=== PATIENT | female | born 1960 | race Caucasian/White ===

== ENCOUNTER 2019-09-11 18:04 | Emergency (ER) | payer BC ==
[2019-09-11] MEDS ORDERED: HYDROcod/ACETAM 5/325 MG TABLET PO STA (18:12)
--- NOTE | 2019-09-11 18:13 | ED Physician Documentation ---
PD HPI LOWER EXT INJURY - Stated complaint Stated Complaint: FALL/LT FOOT INJURY - Chief complaint Chief Complaint: Ext Problem - History obtained from History obtained from: Patient - History of Present Illness PD HPI LOW EXT INJURY LOCATION: Left (She tripped over her dog's leash and fell injuring her left foot. An isolated injury, no other aches or pains. She complains of pain mostly on the medial side of the top of the left foot.) Review of Systems Constitutional: reports: Reviewed and negative Cardiac: reports: Reviewed and negative Respiratory: reports: Reviewed and negative PD PAST MEDICAL HISTORY - Present Medications Home Medications: Ambulatory Orders Medication Instructions Recorded Confirmed Cholecalciferol (Vitamin D3) 1,000 unit PO 09/11/19 [Vitamin D3] Hydrocodone/Acetaminophen 1 - 2 each PO Q6H PRN #20 tablet 09/11/19 [Hydrocodon-Acetaminophen 5-325] Knee Scooter 1 unit TD ONCE #1 09/11/19 Lactobacillus Acidophilus 1 each PO 09/11/19 [Probiotic Acidophilus] - Allergies Allergies/Adverse Reactions: Allergies Allergy/AdvReac Type Severity Reaction Status Date / Time gabapentin [From Neurontin] Allergy Unknown Verified 09/11/19 18:13 Penicillins Allergy Unknown Verified 09/11/19 18:13 PD ED PE NORMAL - Vitals Vital signs reviewed: Yes - General General: Alert and oriented X 3, No acute distress - Derm Derm: Normal color, Warm and dry - Extremities Extremities: Other (Tender over the proximal first and second metatarsals of the left foot with some swelling in that area dorsally. No calcaneus tenderness, no Achilles tenderness, no ankle tenderness.) - Neuro Neuro: Alert and oriented X 3, Normal speech Results - Vitals Vitals: Vital Signs - 24 hr 09/11/19 18:11 Temperature 36.7 C Heart Rate 96 Respiratory 16 Rate Blood Pressure 139/95 H O2 Saturation 99 Oxygen O2 Source Room air - Rads (name of study) 3v L foot Radiology: EMP read contemporaneously (Proximal metadiaphysis fourth metatarsal fracture and possible fracture of the medial second metatarsal.) Procedures - Splint (location) RLE Splint applied by: Tech Type of splint: Fiberglass, Short leg, Posterior Other: Patient tolerated well, No complications, Good alignment, Crutches provided PD MEDICAL DECISION MAKING - ED course ED course: 58-year-old woman with a foot fracture, maybe 2, no obvious evidence of a Lisfranc type injury but it is possible. As such she is being referred to a foot and ankle specialist in [place] for definitive evaluation and treatment. She was splinted and given crutches and a knee scooter and hydrocodone. Departure - Departure Disposition: 01 Home, Self Care Clinical Impression: Foot fracture, left Qualifiers: Encounter type: initial encounter Fracture type: closed Qualified Code(s): S92.902A - Unspecified fracture of left foot, initial encounter for closed fracture Condition: Good Record reviewed to determine appropriate education?: Yes Instructions: ED Fx Foot Follow-Up: Elio Brasher MD [Physician No Access] - Prescriptions: Hydrocodone/Acetaminophen [Hydrocodon-Acetaminophen 5-325] 1 - 2 each PO Q6H PRN #20 tablet PRN Reason: pain Knee Scooter 1 unit TD ONCE #1 Comments: As discussed, you need to follow-up with a foot and ankle specialist I think for this type of fracture, it is reasonable to follow-up with the foot and ankle specialist whom I gave you the printout of in [place], call Friday for an appoi ntment. You should be seen within a week to 10 days. Keep it elevated. Do not walk or bear weight on it. Do not remove the splint or get it wet. Do not drink or drive while taking narcotic pain medication. Note that many narcotic pain relievers also contain Tylenol/acetaminophen. Please ensure that your total dose of acetaminophen from all sources does not exceed 3 g (3000 mg) per day. You may get constipated while on this medication. Take a stool softener such as Colace twice a day while you are on it. Also add an fgoa-[id number] laxative such as senna or MiraLAX on any day that you do not have a bowel movement. If you received a narcotic pain medication or sedative while in the emergency department, do not drive for the next 24 hours.
--- NOTE | 2019-09-11 18:45 | XRAY Report ---
Reason: foot inj Procedure Date: 09/11/2019 Accession Number: [id number] / [id number] Procedure: XR - Foot 3 View LT CPT Code: Final Report FULL RESULT: EXAM: LEFT FOOT RADIOGRAPHY EXAM DATE: 09/11/2019 06:35 PM. CLINICAL HISTORY: Foot injury. Tripped and fell. Pain in left foot. COMPARISON: None. TECHNIQUE: 3 views. FINDINGS: Minimal first MTP osteoarthritis. No subluxation. Acute fracture at the proximal metadiaphysis at the fourth metatarsal with minimal cortical step-off. Bone fragment measuring 7 mm is seen at the medial second metatarsal at the epiphysis, could represent an acute or chronic nonunion fracture. A CT of the left foot could further evaluate these findings. No subluxation is seen. Plantar calcaneal bone spur. IMPRESSION: Acute fracture at the proximal metadiaphysis at the fourth metatarsal with minimal cortical step-off. Bone fragment measuring 7 mm is seen at the medial second metatarsal at the epiphysis, could represent an acute or chronic nonunion fracture. A CT of the left foot could further evaluate these findings. No subluxation is seen. RADIA
[2019-09-11] MEDS ORDERED: HYDROcod/ACET 5/325 Prepack 4 PO STA (19:07)
[2019-09-11 19:12] VITALS: BP 133/69
== END 2019-09-11 19:22 | disposition home or self-care (01) ==
LOC: ED 18:04
DX: S92.342A Displaced fracture of fourth metatarsal bone, left foot, initial encounter for closed fracture (principal); W01.0XXA Fall on same level from slipping, tripping and stumbling without subsequent striking against object, initial encounter
CPT/HCPCS: 73630; 99283; A9270

== ENCOUNTER 2020-06-14 15:23 | Outpatient (CLI) | payer OTHER ==
--- NOTE | 2020-06-15 15:26 | Mammography Report ---
BILATERAL DIGITAL SCREENING MAMMOGRAM 3D/2D: 06/14/2020 CLINICAL: Routine screening. Comparison is made to exams dated: 07/14/2018 mammogram, 06/27/2017 mammogram, 04/14/2015 mammogram, 07/16/2012 mammogram, and 04/14/2015 ultrasound - [facility]. There are scattered fibrogl andular elements in both breasts. There is a new oval equal density focal asymmetry in the left breast at 12 o'clock anterior depth. No other significant masses, calcifications, or other findings are seen in either breast. IMPRESSION: INCOMPLETE: NEEDS ADDITIONAL IMAGING EVALUATION The new oval equal density focal asymmetry in the left breast most likely is a cyst or a lymph node a nd is indeterminate. Additional views with possible ultrasound are recommended. This exam was interpreted at Station ID: [id number]. NOTE: For mammograms, a report in lay terms will be sent to the patient. Approximately 15% of breast malignancies will not be visualized mammographically. In the management of a palpable breast mass, a negative mammogram must not discourage biopsy of a clinically suspicious lesion. Electronically Signed By: Marycarmen [email or web address]/kae:06/14/2020 18:15:41 ACR BI-RADS Category 0: Incomplete 3340F PARENCHYMAL PATTERN: (A) - The breast(s) demonstrate(s) scattered fibroglandular densities. BI-RADS CATEGORY: (0) - 0 Mammo and [place] [id number] Immediate follow-up LATERALITY: (B)
== END 2020-06-14 15:24 | disposition home or self-care (01) ==
LOC: DI 15:23
DX: Z12.31 Encounter for screening mammogram for malignant neoplasm of breast (principal); R92.8 Other abnormal and inconclusive findings on diagnostic imaging of breast
CPT/HCPCS: 77063; 77067

== ENCOUNTER 2020-07-12 08:26 | Outpatient (CLI) | payer OTHER ==
--- NOTE | 2020-07-14 13:17 | Ultrasound Report ---
LIMITED ULTRASOUND OF LEFT BREAST: 07/12/2020 CLINICAL: Patient returns for additional imaging over a suspected mass in the left breast. Comparison is made to exams dated: 07/12/2020 mammogram, 06/14/2020 mammogram - [facility], 07/14/2018 mammogram, 06/27/2017 mammogram, 04/14/2015 mammogram, and 04/14/2015 ultrasound - [facility]. Ultrasound of the left breast 12 o'clock region was performed. There is a benign lymph node in the left breast at 12 o'clock anterior depth. IMPRESSION: BENIGN There is no sonographic evidence of malignancy. The lymph node in the left breast is benign. Return to annual mammogram screening schedule is recommended. This exam was interpreted at Station ID: [id number]. Electronically Signed By: Cholo Arevalo M.D. jr/:07/12/2020 09:45:03 Ultrasound BI-RADS: 2 Benign BI-RADS CATEGORY: (2) - 2 Mammogram [id number] return to screening LATERALITY: (B)
--- NOTE | 2020-07-14 13:17 | Mammography Report ---
UNILATERAL LEFT DIGITAL DIAGNOSTIC MAMMOGRAM 3D/2D: 07/12/2020 CLINICAL: Patient returns today to evaluate a focal asymmetry in the left breast. Comparison is made to exams dated: 06/14/2020 mammogram - [facility], 07/14/2018 m ammogram, 06/27/2017 mammogram, 04/14/2015 mammogram, 07/16/2012 mammogram, and 04/14/2015 ultrasound - [facility]. There are scattered fibroglandular elements in left breast. There is ano change in the oval equal density focal asymmetry in the left breast at 12 o'clock anteri or depth. This appears to represent a lymph node as there is a fatty hilum and adjacent small vessel . No other significant masses or calcifications are seen in the breast. IMPRESSION: INCOMPLETE: NEEDS ADDITIONAL IMAGING EVALUATION The new oval equal density focal asymmetry in the left breast most likely a lymph node. Ultrasound r ecommended to confirm, scheduled to immediately follow this exam. This exam was interpreted at Station ID: [id number]. NOTE: For mammograms, a report in lay terms will be sent to the patient. Approximately 15% of breast malignancies will not be visualized mammographically. In the management of a palpable breast mass, a negative mammogram must not discourage biopsy of a clinically suspicious lesion. Electronically Signed By: Cholo Arevalo M.D. jr/:07/12/2020 09:44:22 ACR BI-RADS Category 0: Incomplete 3340F PARENCHYMAL PATTERN: (A) - The breast(s) demonstrate(s) scattered fibroglandular densities. BI-RADS CATEGORY: (0) - 0 Ultrasound [id number] Immediate follow-up LATERALITY: (B)
== END 2020-07-12 08:27 | disposition home or self-care (01) ==
LOC: DI 08:26
PROVIDERS: ATTEND Internal Medicine
DX: R92.2 Inconclusive mammogram (principal)
CPT/HCPCS: 76642

== ENCOUNTER 2022-12-30 13:01 | Outpatient (CLI) | payer OTHER ==
--- NOTE | 2022-12-31 09:16 | Mammography Report ---
BILATERAL DIGITAL SCREENING MAMMOGRAM 3D/2D: 12/30/2022 Comparison is made to exams dated: 07/12/2020 mammogram, 06/14/2020 mammogram - [facility], 07/14/2018 mammogram, 06/27/2017 mammogram, 04/14/2015 mammogram, and 07/16/2012 mammogram - [facility]. There are scattered areas of fibroglandular density in both breasts (category b / 25%-50% glandular t issue). There is a stable benign focal asymmetry in the left breast. No significant masses, calcifications, or other findings are seen in either breast. There has been no significant interval change. IMPRESSION: BENIGN There is no mammographic evidence of malignancy. A 1 year screening mammogram is recommended. Based on the Tyrer Cuzick model (a risk assessment model) the patients lifetime risk is 6.5% and her 10 year risk is 3.0%. According to the ACR, ACS, and NCCN guidelines, an annual breast MRI exam ramiro g with mammogram is recommended if the patients lifetime risk is 20% or greater. This exam was interpreted at Station ID: [id number]. NOTE: For mammograms, a report in lay terms will be sent to the patient. Approximately 15% of breast malignancies will not be visualized mammographically. In the management of a palpable breast mass, a negative mammogram must not discourage biopsy of a clinically suspicious lesion. Electronically Signed By: Tenzin rodrigues/kae:12/30/2022 16:52:12 letter sent: No_Letter ACR BI-RADS Category 2: Benign Finding(s) 3342F PARENCHYMAL PATTERN: (A) - The breast(s) demonstrate(s) scattered fibroglandular densities. BI-RADS CATEGORY: (2) - 2 Mammogram [id number] 1 year screening LATERALITY: (B)
== END 2022-12-30 13:02 | disposition home or self-care (01) ==
LOC: DI 13:01
PROVIDERS: ATTEND Physician Assistant
DX: Z12.31 Encounter for screening mammogram for malignant neoplasm of breast (principal)

== ENCOUNTER 2024-01-14 14:54 | Outpatient (CLI) | payer MEDICARE, OTHER ==
--- NOTE | 2024-01-15 11:48 | Mammography Report ---
BILATERAL DIGITAL SCREENING MAMMOGRAM 3D/2D: 01/14/2024 CLINICAL: Routine screening. Comparison is made to exams dated: 12/30/2022 mammogram, 07/12/2020 mammogram, 06/14/2020 mammogram - [facility], 07/14/2018 mammogram, 06/27/2017 mammogram, and 04/14/2015 mammogram - [facility]. There are scattered areas of fibroglandular density in both breasts (category b / 25%-50% glandular t issue). There is a stable benign focal asymmetry in the left breast. No significant masses, calcifications, or other findings are seen in either breast. There has been no significant interval change. IMPRESSION: BENIGN There is no mammographic evidence of malignancy. A 1 year screening mammogram is recommended. Based on the Tyrer Cuzick model (a risk assessment model) the patient's lifetime risk is 6.2% and her 10 year risk is 3.0%. According to the ACR, ACS, and NCCN guidelines, an annual breast MRI exam ramiro g with mammogram is recommended if the patient's lifetime risk is 20% or greater. This exam was interpreted at Station ID: [id number]. NOTE: For mammograms, a report in lay terms will be sent to the patient. Approximately 15% of breast malignancies will not be visualized mammographically. In the management of a palpable breast mass, a negative mammogram must not discourage biopsy of a clinically suspicious lesion. Electronically Signed By: Judie duenas/kae:01/14/2024 17:17:32 letter sent: No_Letter ACR BI-RADS Category 2: Benign Finding(s) 3342F PARENCHYMAL PATTERN: (A) - The breast(s) demonstrate(s) scattered fibroglandular densities. BI-RADS CATEGORY: (2) - 2 RECOMMENDATION: (ANNUAL) - Recommend routine annual screening mammography. [id number] 1 year screening LATERALITY: (B)
== END 2024-01-14 14:55 | disposition home or self-care (01) ==
LOC: DI 14:54
PROVIDERS: ATTEND Student in an Organized Health Care Education/Training Program
DX: Z12.31 Encounter for screening mammogram for malignant neoplasm of breast (principal); R92.323 Mammographic fibroglandular density, bilateral breasts